=== PATIENT | female | born 1955 | race Caucasian/White ===

== ENCOUNTER 2018-03-07 12:48 | Emergency (ER) | payer BC, OTHER ==
[2018-03-07 13:40] VITALS: BP 151/77
--- NOTE | 2018-03-07 13:50 | UC ---
Upper Extremity HPI - HPI Summary HPI Summary: PT STATES SHE WAS ATTEMPTING TO REMOVE A TIGHT BOLT OFF AN IPA DRUM WITH HER HANDS BECAUSE THE TOOL WAS NOT AVAILABLE. A SHORT TIME LATER, SHE NOTED PAIN TO THE OUTER SIDE OF HER R UPPER ARM. THIS HAPPENED ABOUT 1.5 WEEKS AGO. SHE IS SELF TING WITH OTC ALEVE WITHOUT RELIEF. SOMETIMES PAIN RADIATES INTO THE ARM. NO ASSOCIATED NECK PAIN. - History of Current Complaint Chief Complaint: UCUpperExtremity Stated Complaint: WC-RT ARM INJURY Time Seen by Provider: 03/07/18 13:35 Hx Obtained From: Patient Pain Intensity: 6 Aggravating Factor(s): Abduction Alleviating Factor(s): Rest, Other: - NOT TRYING TO LIFT THE ARM ABOVE HER SIDE Associated Signs And Symptoms: Positive: Swelling - PT THINKS THE AREA MAY BE SWOLLEN. Negative: Redness, Numbness/Tingling - Allergies/Home Medications Allergies/Adverse Reactions: Allergies Allergy/AdvReac Type Severity Reaction Status Date / Time No Known Allergies Allergy Verified 03/07/18 13:29 Home Medications: Home Medications Naproxen Sodium [Aleve] 660 mg PO DAILY PRN 03/07/18 [History Confirmed 03/07/18 ] PMH/Surg Hx/FS Hx/Imm Hx Previously Healthy: Yes - Surgical History Surgical History: Yes Surgery Procedure, Year, and Place: tubal ligation- hysterectomy. appy - Family History Known Family History: Positive: None - Social History Occupation: Employed Full-time Alcohol Use: None Substance Use Type: None Smoking Status (MU): Never Smoked Tobacco - Immunization History Vaccination Up to Date: Yes Review of Systems Constitutional: Negative Skin: Negative Eyes: Negative ENT: Negative Respiratory: Negative Cardiovascular: Negative Gastrointestinal: Negative Genitourinary: Negative Motor: Negative Neurovascular: Negative Musculoskeletal: Other: - Pain R upper arm Neurological: Negative Psychological: Negative Is Patient Immunocompromised?: No All Other Systems Reviewed And Are Negative: Yes Physical Exam Triage Information Reviewed: Yes Appearance: Well-Appearing Vital Signs: Initial Vital Signs Temp 98.9 F 03/07/18 13:32 Pulse 66 03/07/18 13:32 Resp 16 03/07/18 13:32 BP 151/77 03/07/18 13:32 Pulse Ox 99 03/07/18 13:32 Eyes: Positive: Conjunctiva Clear ENT: Positive: Normal ENT inspection Neck: Positive: Supple, Nontender, No Lymphadenopathy, Other: - c-spine is not tender. Respiratory: Positive: Lungs clear, Normal breath sounds Cardiovascular: Positive: RRR, No Murmur Abdomen Description: Positive: Nontender, No Organomegaly, Soft Bowel Sounds: Positive: Present Musculoskeletal: Positive: Other: - RUE: No gross deformity, swelling or discoloration. There is some vague tenderness to palpation over the proximal portion of the upper arm lateral to the bicep tendon and medial to the deltoid as well as over the deltoid. There is no additional tenderness to palpation and no bony tenderness to palpation. Passive range of motion of the shoulder is intact without pain or crepitation. Active shoulder range of motion is extremely limited on abduction plus patient has a positive drop arm test. Any attempt to raise that upper arm higher than parallel to shoulder causes patient pain. Elbow forearm wrist and hand have full range of motion plus full sensorivascular motor function. Neurological: Positive: Alert Psychological: Positive: Age Appropriate Behavior Skin Exam: Normal Upper Extremity Course/Dx - Course Course Of Treatment: No concern for fracture or dislocation. Given the location of her pain limited abduction positive drop arm test, I think there is probable rotator cuff pathology. Patient may continue her [id number] Aleve and should follow-up with her orthopedic referral as soon as possible. I will also provide her with limited duty so that she may rest the shoulder area. - Differential Dx/Diagnosis Provider Diagnoses: ACUTE PAIN R UPPER ARM-LATERAL SHOULDER AREA. Discharge - Sign-Out/Discharge Documenting (check all that apply): Patient Departure All imaging exams completed and their final reports reviewed: No Studies - Discharge Plan Condition: Stable Disposition: HOME Patient Education Materials: Shoulder Pain (ED) Forms: *Work Release Referrals: Devon Hernandez MD [Medical Doctor] - As Soon As Possible Additional Instructions: DIAGNOSIS: ACUTE PAIN R UPPER ARM-LATERAL SHOULDER AREA. YOU MAY TALE ALEVE OVER THE COUNTER 440MG TWICE DAILY NEEDED FOR PAIN. - Billing Disposition and Condition Condition: STABLE Disposition: Home
== END 2018-03-07 14:12 | disposition home or self-care (01) ==
LOC: UCCORT 12:48
DX: M79.621 Pain in right upper arm (principal); M25.511 Pain in right shoulder; X50.0XXA Overexertion from strenuous movement or load, initial encounter; Y93.89 Activity, other specified; Y92.9 Unspecified place or not applicable
CPT/HCPCS: 99201; G0463